=== PATIENT | female | born 1980 | race Caucasian/White ===

== ENCOUNTER 2020-05-21 15:06 | Emergency (ER) | payer BC, OTHER ==
[~2020-05-21] VITALS: Ht 160 cm; Wt 59.0 kg
[2020-05-21 15:10] VITALS: BP 118/70
== END 2020-05-21 15:25 | disposition left against medical advice (07) ==
LOC: EMR 15:25
DX: R30.0 Dysuria (principal); Z53.21 Procedure and treatment not carried out due to patient leaving prior to being seen by health care provider